=== PATIENT | female | born 1975 | race Caucasian/White ===

== ENCOUNTER 2016-06-24 11:56 | Emergency (ER) | payer OTHER ==
[2016-06-24 12:21] VITALS: BMI 29.8
[2016-06-24] MEDS ORDERED: SODIUM CHLORIDE 1,000 ML IV STA (12:58)
--- NOTE | 2016-06-24 12:58 | PDOC ---
History of Present Illness - General History Source: Patient Exam Limitations: No Limitations - History of Present Illness Initial Comments: 06/24/16 13:30 The patient is a 40 year old female with significant past medical history of hypertension, hyperlipidemia who presents to the emergency department with abdominal pain for 2 weeks. The patient states she has been having abdominal pain for the last 2 weeks so yesterday she saw her PMD and had blood tests done that showed a Hgb of 9. The patient describes her pain as constant in nature, localized to the suprapubic region and LLQ. The patient reports associated nausea and dizziness. She denies any LOC or headaches. The patient denies any vomiting or diarrhea. The patient denies any chest pain or SOB. She denies any fevers, chills, sick contacts or recent travels. The patient has been drinking fluids for the last few days and has been able to keep it down. <Mariah Henson - Last Filed: 06/24/16 13:29> <Jennifer Shepherd - Last Filed: 06/28/16 09:30> - General Chief Complaint: Pain, Acute Stated Complaint: DIZZINESS, NAUSEA, LOSS OF APPETITE Time Seen by Provider: 06/24/16 12:50 Past History <Mariah Henson - Last Filed: 06/24/16 13:29> - Past Medical History Asthma: Yes HTN: Yes (PRE-ECLAMPSIA) Kidney Stones: No (IGA-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) - Psycho/Social/Smoking Cessation Hx Anxiety: No Suicidal Ideation: No Smoking History: Never smoked Have you smoked in the past 12 months: No Hx Alcohol Use: No Substance Use Type: None <Jennifer Shepherd - Last Filed: 06/28/16 09:30> - Past Medical History Allergies/Adverse Reactions: Allergies Allergy/AdvReac Type Severity Reaction Status Date / Time Iodinated Contrast Media - Allergy Verified 06/24/16 15:41 Oral and Penicillins Allergy Verified 06/24/16 12:18 Home Medications: Ambulatory Orders Doxycycline Hyclate 100 mg PO BID #10 capsule 06/24/16 Losartan Potassium [Cozaar] 100 mg PO DAILY 06/24/16 Review of Systems - Review of Systems Able to Perform ROS?: Yes Comments:: 06/24/16 13:30 GENERAL/CONSTITUTIONAL: No fever or chills. No weakness. HEAD, EYES, EARS, NOSE AND THROAT: No change in vision. No ear pain or discharge. No sore throat. CARDIOVASCULAR: No chest pain or shortness of breath. RESPIRATORY: No cough, wheezing, or hemoptysis. GASTROINTESTINAL: +Nausea, +abdominal pain. No vomiting, diarrhea or constipation. GENITOURINARY: No dysuria, frequency, or change in urination. MUSCULOSKELETAL: No joint or muscle swelling or pain. No neck or back pain. SKIN: No rash NEUROLOGIC: No headache, vertigo, loss of consciousness, or change in strength/ sensation. ENDOCRINE: No increased thirst. No abnormal weight change. HEMATOLOGIC/LYMPHATIC: No anemia, easy bleeding, or history of blood clots. ALLERGIC/IMMUNOLOGIC: No hives or skin allergy. <Mariah Henson - Last Filed: 06/24/16 13:29> *Physical Exam - Vital Signs Last Vital Signs Temp Pulse Resp BP Pulse Ox 98.3 F 77 19 134/77 99 06/24/16 12:18 06/24/16 12:18 06/24/16 12:18 06/24/16 12:18 06/24/16 12:18 - Physical Exam Comments: 06/24/16 13:30 GENERAL: Awake, alert, and fully oriented, in no acute distress HEAD: No signs of trauma EYES: PERRLA, EOMI, sclera anicteric, conjunctiva clear ENT: Auricles normal inspection, hearing grossly normal, nares patent, oropharynx clear without exudates. Moist mucosa NECK: Normal ROM, supple, no lymphadenopathy, JVD, or masses LUNGS: Breath sounds equal, clear to auscultation bilaterally. No wheezes, and no crackles HEART: Regular rate and rhythm, normal S1 and S2, no murmurs, rubs or gallops ABDOMEN: +LLQ tenderness, no guarding, no rebound. Soft, normoactive bowel sounds. No masses EXTREMITIES: Normal range of motion, no edema. No clubbing or cyanosis. No cords, erythema, or tenderness NEUROLOGICAL: Cranial nerves II through XII grossly intact. Normal speech, normal gait SKIN: Warm, Dry, normal turgor, no rashes or lesions noted. <Mariah Henson - Last Filed: 06/24/16 13:29> - Vital Signs Last Vital Signs Temp Pulse Resp BP Pulse Ox 98.3 F 77 19 134/77 99 06/24/16 12:18 06/24/16 12:18 06/24/16 12:18 06/24/16 12:18 06/24/16 12:18 <Jennifer Shepherd - Last Filed: 06/28/16 09:30> ED Treatment Course - LABORATORY CBC & Chemistry Diagram: 06/24/16 12:58 06/24/16 12:58 - ADDITIONAL ORDERS Additional order review: 06/24/16 12:58 RBC 4.26 MCV 77.6 L MCHC 32.5 RDW 15.9 H D MPV 9.7 Neutrophils % 62.4 Lymphocytes % 22.3 Monocytes % 11.2 H Eosinophils % 3.5 Basophils % 0.6 <Mariah Hneson - Last Filed: 06/24/16 13:29> - LABORATORY CBC & Chemistry Diagram: 06/24/16 12:58 06/24/16 12:58 <Jennifer Shepherd - Last Filed: 06/28/16 09:30> Medical Decision Making - Medical Decision Making CT reviewed- no signs of acute process. Stable for DC home. <Jennifer Shepherd - Last Filed: 06/28/16 09:30> *DC/Admit/Observation/Transfer - Attestations Scribe Attestion: 06/24/16 13:31 Documentation prepared by Mariah Henson, acting as medical service representative for Jennifer Shepherd MD. <Mariah Henson - Last Filed: 06/24/16 13:29> - Discharge Dispostion Admit: No <Jennifer Shepherd - Last Filed: 06/28/16 09:30> Diagnosis at time of Disposition: Abdominal pain Qualifiers: Abdominal location: left lower quadrant Qualified Code(s): R10.32 - Left lower quadrant pain - Discharge Dispostion Disposition: HOME Condition at time of disposition: Stable - Referrals Referrals: Patric Kasper MD [Primary Care Provider] - - Patient Instructions Printed Discharge Instructions: DI for Abdominal Pain-Adult
[2016-06-24 13:22] LABS: BASOPHIL 0.6 % (0-2.0); EOSINOPHIL 3.5 % (0-4.5); MCH 25.2 pg (25.7-33.7); MCHC 32.5 g/dl (32.0-36.0); MEAN CELL VOLUME 77.6 fl (80-96); MEAN PLT VOLUME 9.7 fl (7.5-11.1); NEUTROPHILS 62.4 % (42.8-82.8); PLATELET COUNT 272 K/MM3 (134-434); RDW 15.9 % (11.6-15.6); WHITE BLOOD COUNT 8.2 K/mm3 (4.0-10.0)
[2016-06-24 13:39] LABS: ANION GAP 9 (8-16); CALCIUM 9.7 mg/dL (8.5-10.1); CO2 24 mmol/L (21-32); GLUCOSE,RANDOM 88 mg/dL (74-106); SGPT/ALT 21 U/L (12-78)
[2016-06-24 13:42] LABS: ALK PHOS 59 U/L (45-117); BILIRUBIN,TOTAL 0.3 mg/dL (0.2-1.0); SGOT/AST 22 U/L (15-37); TOT PROT 6.9 g/dl (6.4-8.2)
[2016-06-24 13:50] LABS: URINE APPEARANCE CLEAR; URINE BILIRUBIN NEGATIVE (NEGATIVE); URINE COLOR STRAW; URINE GLUCOSE (UA) NEGATIVE (NEGATIVE); URINE KETONE NEGATIVE (NEGATIVE); URINE LEUK ESTERASE NEGATIVE (NEGATIVE); URINE NITRITE NEGATIVE (NEGATIVE); URINE UROBILINOGEN NEGATIVE E.U./dl (0.2-1.0)
[2016-06-24 13:52] LABS: URINE BLOOD 1+ (NEGATIVE); URINE PROTEIN 2+ (NEGATIVE)
[2016-06-24 13:58] LABS: URINE BACTERIA RARE /hpf (NONE SEEN); URINE RBC 2 /hpf (0-3); URINE WBC <1 /hpf (3-5)
[2016-06-24 17:29] VITALS: BP 123/72; PULSE 75; TEMP 98.2
== END 2016-06-24 17:10 | disposition home or self-care (01) ==
LOC: JER 11:56
PROC: 3E0337Z Introduction of Electrolytic and Water Balance Substance into Peripheral Vein, Percutaneous Approach (ICD-10-PCS; principal; 2016-06-24)
DX: R10.32 Left lower quadrant pain (principal); J45.909 Unspecified asthma, uncomplicated
CPT/HCPCS: 36415; 74176-TC; 80053; 81003; 81015; 83690; 84703; 85025; 96360; 99283-25

== ENCOUNTER 2016-06-24 19:11 | Emergency (ER) | payer OTHER ==
[2016-06-24 19:18] VITALS: BP 144/72; PULSE 94; TEMP 97.7; BMI 29.8
--- NOTE | 2016-06-24 22:01 | PDOC ---
History of Present Illness - General Chief Complaint: Bite Stated Complaint: DOG BITE Time Seen by Provider: 06/24/16 21:54 History Source: Patient Exam Limitations: No Limitations - History of Present Illness Timing/Duration: reports: just prior to arrival Location: reports: hands (left dorsal) Respiratory Risk Factors: reports: other (dog bite) Past History - Travel Traveled outside of the country in the last 30 days: Yes Close contact w/someone who was outside of country & ill: No - Past Medical History Allergies/Adverse Reactions: Allergies Allergy/AdvReac Type Severity Reaction Status Date / Time Iodinated Contrast Media - Allergy Verified 06/24/16 19:18 Oral and Penicillins Allergy Verified 06/24/16 19:18 Home Medications: Ambulatory Orders Doxycycline Hyclate 100 mg PO BID #10 capsule 06/24/16 Losartan Potassium [Cozaar] 100 mg PO DAILY 06/24/16 Asthma: Yes HTN: Yes (PRE-ECLAMPSIA) Kidney Stones: No (IGA-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) - Immunization History Immunization Up to Date: No - Psycho/Social/Smoking Cessation Hx Anxiety: No Suicidal Ideation: No Smoking History: Never smoked Have you smoked in the past 12 months: No Information on smoking cessation initiated: No Hx Alcohol Use: No Drug/Substance Use Hx: No Substance Use Type: None Review of Systems - Review of Systems Able to Perform ROS?: Yes Comments:: right hand pw lac to 3rd dorsal mc neg ext numbness/tingling sensation neg active bleed Is the patient limited Thai proficient: No *Physical Exam - Vital Signs Last Vital Signs Temp Pulse Resp BP Pulse Ox 97.7 F 94 H 20 144/72 99 06/24/16 19:16 06/24/16 19:16 06/24/16 19:16 06/24/16 19:16 06/24/16 19:16 - Physical Exam Comments: 06/24/16 22:09 06/24/16 22:08 right hand 1cm horizontal pw lac to mid 3th mc +swelling +pain on palp right fingers 2 point sensation intact Cap refill <2sec Progress Note - Progress Note Progress Note: 40-year-old female who is right hand dominant presents to the emergency department complaining of a puncture wound laceration to the dorsal aspect of her right hand. Patient states while HER-2 dogs from fighting, one of them bit her on her hand. Patient denies any extremity numbness or tingling sensation. Patient's dog's immunizations are up-to-date. Unknown last tetanus. Right hand 1cm pw lac to mid 3rd dorsal mc 1% lidocaine 2cc Copious NS irrigation telfa kerlex No sutures *DC/Admit/Observation/Transfer Diagnosis at time of Disposition: Dog bite of right hand Qualifiers: Encounter type: initial encounter Qualified Code(s): S61.451A - Open bite of right hand, initial encounter - Discharge Dispostion Disposition: HOME Condition at time of disposition: Good - Prescriptions Prescriptions: Doxycycline Hyclate 100 mg PO BID #10 capsule - Referrals Referrals: Darryl Kasper MD [Primary Care Provider] - - Patient Instructions Printed Discharge Instructions: DI for Animal Bites Additional Instructions: Elevate your right hand Wound check in 2 days by your physician Take your antibiotics/doxycycline as prescribed (you are allergic to penicillin You don't need the rabies vaccination because you're dog's shots are up-to-date. Return back to the emergency department for any signs of infection, red streaks , fever, numbness or tingling sensation.
[2016-06-24] MEDS ORDERED: DOXYCYCLINE HYCLATE 100 MG CAPSULE PO ONE (22:05)
[2016-06-24] MEDS ORDERED: TETANUS AND DIPHTHERIA TOXOID 0.5 ML DISP.SYRIN IM ONE (22:05)
[2016-06-24] MEDS ORDERED: DOXYCYCLINE HYCLATE 100 MG VIAL ONE (22:20)
== END 2016-06-24 22:54 | disposition home or self-care (01) ==
LOC: JERFT 19:11 → SUPCPDRO 19:11 → JERFT 22:54
PROC: 3E0234Z Introduction of Serum, Toxoid and Vaccine into Muscle, Percutaneous Approach (ICD-10-PCS; principal; 2016-06-24)
DX: S61.452A Open bite of left hand, initial encounter (principal); W54.0XXA Bitten by dog, initial encounter; Y93.K9 Activity, other involving animal care; Y92.038 Other place in apartment as the place of occurrence of the external cause
CPT/HCPCS: 73130-TC-LT; 90471; 90715; 99281-25

== ENCOUNTER 2016-06-26 10:12 | Emergency (ER) | payer OTHER ==
[2016-06-26 10:17] VITALS: BP 133/68; PULSE 74; TEMP 98.1; BMI 29.8
--- NOTE | 2016-06-26 11:13 | PDOC ---
Suture Removal/Wound Check HPI - History of Present Illness Chief Complaint: Revisit,Wound Recheck Stated Complaint: RETURN VISIT Time Seen by Provider: 06/26/16 10:49 History Source: Yes: Patient Exam Limitations: Yes: No Limitations Treated at: [facility] ED - Previous ED Treatment Type of procedure performed on last visit: Yes: Other Tetanus Immunization: Yes: Up to Date Past History - Travel Traveled outside of the country in the last 30 days: No Close contact w/someone who was outside of country & ill: No - Past Medical History Allergies/Adverse Reactions: Allergies Iodinated Contrast Media - Oral and Allergy (Verified 06/26/16 10:17) Penicillins Allergy (Verified 06/26/16 10:17) Home Medications: Ambulatory Orders Doxycycline Hyclate 100 mg PO BID #10 capsule 06/24/16 Losartan Potassium [Cozaar] 100 mg PO DAILY 06/24/16 General: Yes: no pertinent history - Immunization History Immunizations Up to Date: No Tetanus Status: More than 5 years - Social History Smoking Status: Never smoked Suture Removal/Wound Check PE - Physical Exam Laceration/Wound Check Symptoms: reports: Pain (tenderness and swelling to), Other Comment (swelling and brusing to hand) Current Severity Level: None Maximum Severity Level: None Location of Laceration/Wound: right: Hand (puncture wound without redness, exudate, or 2 erythema noted although hand is swollen but appears more ecchymotic. Is able to flex and extend at fingers but has reproduced tenderness against resistance to left fourth digit with flexion and extension. No evidence of tenosynovitis.) *Review of Systems - Review of Systems Able to Perform ROS?: Yes Constitutional: Yes: Symptoms Reported, See HPI, Malaise. No: Fever Integumentary: Yes: Symptoms Reported, See HPI, Bruising Neurological: Yes: Symptoms reported All Other Systems: Reviewed and Negative Medical Decision Making - Medical Decision Making 06/26/16 12:18 discussed need to continue wound management for this hand, encouraged to keep highly elevated some swelling and reapply antibiotic cream and dressings 2-3 times a day. Given signs and symptoms of worsening including worsening redness, swelling, tenderness or inability to flex fingers. Encouraged to follow-up with hand specialist and given Dr. Champagne's telephone number for wound check this week. *DC/Admit/Observation/Transfer Diagnosis at time of Disposition: Encounter for wound re-check Dog bite of right hand Qualifiers: Encounter type: subsequent encounter Qualified Code(s): S61.451D - Open bite of right hand, subsequent encounter - Discharge Dispostion Disposition: HOME Condition at time of disposition: Stable Admit: No - Referrals Referrals: Patric Kasper MD [Primary Care Provider] - Bridger Hannah MD [Staff Physician] - - Patient Instructions Additional Instructions: Rest hand, keep highly elevated, use sling as often as possible Soak hand 2-3 times a day and reapply antibiotic cream Continue Augmentin as directed until completed Return immediately to emergency department for worsened pain, redness to hand, swelling, and immobility to fingers May consider follow-up appointment with hand specialist/orthopedist next week - Post Discharge Activity Work/School Note: Back to Work
== END 2016-06-26 11:19 | disposition home or self-care (01) ==
LOC: JERFT 10:12
DX: S61.451D Open bite of right hand, subsequent encounter (principal); W54.0XXD Bitten by dog, subsequent encounter
CPT/HCPCS: 99281-25

== ENCOUNTER 2016-08-18 15:06 | Emergency (ER) | payer OTHER ==
[2016-08-18 15:15] VITALS: BP 148/88; PULSE 79; TEMP 98.1; BMI 31.1
[2016-08-18] MEDS ORDERED: KETOROLAC TROMETHAMINE 30 MG/1 ML VIAL ONE (15:50)
[2016-08-18] MEDS ORDERED: KETOROLAC TROMETHAMINE 30 MG/1 ML VIAL IM ONE (15:58)
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
== END 2016-08-18 16:25 | disposition home or self-care (01) ==
LOC: JERFT 15:06
PROC: 3E0233Z Introduction of Anti-inflammatory into Muscle, Percutaneous Approach (ICD-10-PCS; principal; 2016-08-18)
DX: M54.2 Cervicalgia (principal); V43.52XA Car driver injured in collision with other type car in traffic accident, initial encounter; Y93.89 Activity, other specified; Y92.410 Unspecified street and highway as the place of occurrence of the external cause; I10 Essential (primary) hypertension; J45.909 Unspecified asthma, uncomplicated
CPT/HCPCS: 99281-25

== ENCOUNTER 2017-02-24 12:44 | Emergency (ER) | payer OTHER ==
[2017-02-24 12:50] VITALS: BP 135/87; PULSE 72; TEMP 98.4; BMI 29.8
--- NOTE | 2017-02-24 12:56 | PDOC ---
History of Present Illness - General Chief Complaint: Nausea Stated Complaint: HEADACHES Time Seen by Provider: 02/24/17 12:56 History Source: Patient - History of Present Illness Initial Comments: 41 year old female with history of epilepsy (childhood, currently unmedicated), HTN, and HLD presenting with dysuria, nausea, malaise, cough, and congestion for the past week. SHe states that she has had the dysuria with darkened urine and general weakness with occasional nausea for a week and tried some over the counter urinary medicine that she does not recall the name of. Just one day prior to her presentation she had a cough, congestion, and some rhinorrhea. She has tried nyquil and dayquil with minimal relief. Denies vomiting, chest pain, product cough, fevers, palpitations or other symptoms. 02/24/17 13:35 Past History - Past Medical History Allergies/Adverse Reactions: Allergies Allergy/AdvReac Type Severity Reaction Status Date / Time Iodinated Contrast- Oral and Allergy Verified 02/24/17 12:47 IV Dye [Iodinated Contrast Media - Oral and] Penicillins Allergy Verified 02/24/17 12:47 Home Medications: Ambulatory Orders Losartan Potassium [Cozaar] 100 mg PO DAILY 06/24/16 Simvastatin 40 mg PO DAILY 02/24/17 Sulfamethoxazole/Trimethoprim [Bactrim Ds Tablet] 1 each PO BID #13 tablet 02/24 Anemia: Yes Asthma: Yes HTN: Yes (PRE-ECLAMPSIA) Hypercholesterolemia: Yes Kidney Stones: (IGA-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) - Surgical History Abdominal Surgery: Yes - Immunization History Immunization Up to Date: No - Suicide/Smoking/Psychosocial Hx Smoking History: Never smoked Have you smoked in the past 12 months: No Hx Alcohol Use: No Drug/Substance Use Hx: No Substance Use Type: None Review of Systems - Review of Systems Constitutional: Yes: Chills, Diaphoresis, Loss of Appetite. No: Fever HEENTM: No: Blurred Vision Respiratory: No: Cough, Shortness of Breath, SOB with Exertion, Wheezing, Productive cough Cardiac (ROS): No: Chest Pain ABD/GI: No: Constipated, Diarrhea, Nausea, Vomiting *Physical Exam - Vital Signs Last Vital Signs Temp Pulse Resp BP Pulse Ox 98.4 F 72 18 135/87 99 02/24/17 12:46 02/24/17 12:46 02/24/17 12:46 02/24/17 12:46 02/24/17 12:46 - Physical Exam General Appearance: Yes: Nourished, Appropriately Dressed. No: Apparent Distress HEENT: positive: EOMI, RODERICK. negative: Normal ENT Inspection (mucous in the nares) Neck: positive: Trachea midline, Normal Thyroid, Supple. negative: Tender, Rigid Respiratory/Chest: positive: Lungs Clear, Normal Breath Sounds. negative: Chest Tender, Respiratory Distress Cardiovascular: positive: Regular Rhythm, Regular Rate Gastrointestinal/Abdominal: positive: Normal Bowel Sounds, Flat, Soft. negative : Tender Musculoskeletal: positive: Normal Inspection. negative: CVA Tenderness Extremity: positive: Normal Capillary Refill Integumentary: positive: Normal Color, Dry, Warm Neurologic: positive: Fully Oriented, Alert, Normal Mood/Affect ED Treatment Course - LABORATORY CBC & Chemistry Diagram: 02/24/17 13:19 02/24/17 13:19 Medical Decision Making - Medical Decision Making 41 year old female with dysuria, nausea, fatigue, and recent upper respiratory symptoms. UA positive for nitrites. Patient feeling better after 1 L NS. Will give one dose of Bactrim DS. Will send home with 13 doses of Bactrim DS BID to complete one week of therapy. 02/24/17 15:14 *DC/Admit/Observation/Transfer Diagnosis at time of Disposition: UTI (urinary tract infection) - Discharge Dispostion Disposition: HOME Condition at time of disposition: Improved Admit: No - Prescriptions Prescriptions: Sulfamethoxazole/Trimethoprim [Bactrim Ds Tablet] 1 each PO BID #13 tablet - Referrals Referrals: Darryl Kasper MD [Primary Care Provider] - - Patient Instructions Printed Discharge Instructions: DI for Urinary Tract Infection (UTI)
[2017-02-24] MEDS ORDERED: SODIUM CHLORIDE 0.9% 1000 ML INFUS.BAG IV ONE (13:27)
--- NOTE | 2017-02-24 13:50 | PDOC ---
Attending Attestation - Resident Resident Name: Artemio Best - ED Attending Attestation I have performed the following: I have examined & evaluated the patient, The case was reviewed & discussed with the resident, I agree w/resident's findings & plan, Exceptions are as noted - Medical Decision Making 02/24/17 14:24 A portion of this note was written by my scribe, under my supervision. Vital Signs Temp Pulse Resp BP Pulse Ox 98.4 F 72 18 135/87 99 02/24/17 12:46 02/24/17 12:46 02/24/17 12:46 02/24/17 12:46 02/24/17 12:46 41-year-old female with history of hypertension, hyperlipidemia presents with 10 days of dysuria. She reports reported discomfort now resolved and has had body aches. Most recently since yesterday started developing nasal congestion. Patient has tried Monistat and Pyridium at home with minimal effect I agree with the resident plan to rule out urinary tract infection. Labs, urinalysis. <David Finley - Last Filed: 02/24/17 14:24> - HPI HPI: 02/24/17 14:27 Patient is a 41 year old female with a significant past medical history of HTN, High cholesterol, who presents to the ED with complaints of dysuria that began 10 days ago. Patient reports dysuria began suddenly 10 days while at home. She reports taking monistat and peridium for dysuria 10 days ago. Patient reports calling PCP for dysuria and was scheduled for appointment 6 days ago. Patient states PCP diagnosed anemia. She reports experiencing episodes of nausea and general weakness secondary to dysuria. Patient states she took dayquil for dysuria with minimal relief. She reports nausea and weakness returned jc and yesterday secondary to dysuria. Patient reports Hx of epilepsy as child but states she has not had episode since 1 years old. Denies Chest pain, SOB. Denies fever, chills. Denies hematuria, constipation, diarrhea. Denies any other symptoms. Allergies: penicillin, Iodinated contrast oral and IV dye. Surgical history: None Social history: No smoking. No alcohol. No illicit drugs. PMD: Dr. Kasper. - Physicial Exam PE: 02/24/17 14:27 GENERAL: Awake, alert, and fully oriented, in no acute distress HEAD: No signs of trauma EYES: PERRLA, EOMI, sclera anicteric, conjunctiva clear ENT: Auricles normal inspection, hearing grossly normal, nares patent, oropharynx clear without exudates. Moist mucosa NECK: Normal ROM, supple, no lymphadenopathy, JVD, or masses LUNGS: Breath sounds equal, clear to auscultation bilaterally. No wheezes, and no crackles HEART: Regular rate and rhythm, normal S1 and S2, no murmurs, rubs or gallops ABDOMEN: +Superpubic tenderness. Soft, nontender, normoactive bowel sounds. No guarding, no rebound. No masses EXTREMITIES: Normal range of motion, no edema. No clubbing or cyanosis. No cords, erythema, or tenderness NEUROLOGICAL: Cranial nerves II through XII grossly intact. Normal speech, normal gait SKIN: Warm, Dry, normal turgor, no rashes or lesions noted. - Medical Decision Making 02/24/17 14:27 Documentation prepared by Da Miner, acting as medical coding technician for David Finley MD. <Da Miner - Last Filed: 02/24/17 14:27>
[2017-02-24 13:56] LABS: BASOPHIL 0.9 % (0-2.0); EOSINOPHIL 4.7 % (0-4.5); MCH 29.1 pg (25.7-33.7); MCHC 33.7 g/dl (32.0-36.0); MEAN CELL VOLUME 86.1 fl (80-96); MEAN PLT VOLUME 10.4 fl (7.5-11.1); PLATELET COUNT 253 K/MM3 (134-434); RDW 13.4 % (11.6-15.6); WHITE BLOOD COUNT 10.1 K/mm3 (4.0-10.0)
[2017-02-24 14:19] LABS: ANION GAP 8 (8-16); BILIRUBIN,TOTAL 0.4 mg/dL (0.2-1.0); CO2 25 mmol/L (21-32); CREATININE 1.1 mg/dL (0.55-1.02); GLUCOSE,RANDOM 94 mg/dL (74-106); SGOT/AST 27 U/L (15-37); SGPT/ALT 23 U/L (12-78)
[2017-02-24 14:21] LABS: ALK PHOS 70 U/L (45-117); TOT PROT 7.1 g/dl (6.4-8.2)
[2017-02-24 14:33] LABS: URINE APPEARANCE CLEAR; URINE BILIRUBIN NEGATIVE (NEGATIVE); URINE BLOOD 2+ (NEGATIVE); URINE COLOR AMBER; URINE GLUCOSE (UA) NEGATIVE (NEGATIVE); URINE KETONE NEGATIVE (NEGATIVE); URINE NITRITE POSITIVE (NEGATIVE)
[2017-02-24 14:41] LABS: URINE PROTEIN 3+ (NEGATIVE)
[2017-02-24 14:44] LABS: URINE HYALINE CAST 1 /lpf; URINE MUCUS RARE; URINE RBC 18 /hpf (0-3); URINE WBC 1 /hpf (3-5)
[2017-02-24] MEDS ORDERED: SULFAMETHOXAZOLE/TRIMETHOPRIM 800MG/160MG D.S. TABLET PO ONE (15:11)
[2017-02-24] MEDS ORDERED: SULFAMETHOXAZOLE/TRIMETHOPRIM 800MG/160MG D.S. TABLET ONE (15:52)
[2017-02-24 16:40] LABS: URINE LEUK ESTERASE Negative (NEGATIVE)
== END 2017-02-24 16:15 | disposition home or self-care (01) ==
LOC: JER 12:44 → SUPCPDRO 12:44 → JER 16:15
PROC: 3E0337Z Introduction of Electrolytic and Water Balance Substance into Peripheral Vein, Percutaneous Approach (ICD-10-PCS; principal; 2017-02-24)
DX: N39.0 Urinary tract infection, site not specified (principal); G40.909 Epilepsy, unspecified, not intractable, without status epilepticus; I10 Essential (primary) hypertension; E78.5 Hyperlipidemia, unspecified; J45.909 Unspecified asthma, uncomplicated
CPT/HCPCS: 36415; 80053; 81003; 81015; 84703; 85025; 87086; 87804; 96360; 99283-25

== ENCOUNTER 2017-05-17 11:01 | Emergency (ER) | payer OTHER ==
--- NOTE | 2017-05-17 11:06 | PDOC ---
History of Present Illness - General Chief Complaint: Respiratory Stated Complaint: COLD SYMPTOMS ASTHMA Time Seen by Provider: 05/17/17 11:04 - History of Present Illness Initial Comments: 05/17/17 11:58 Chief complaint: Nonproductive cough History of present illness: Patient's child is ill with upper respiratory infection, patient developed nonproductive cough, especially at night, several days ago. Taking OTC medication without relief Review of systems: Denies chest pain, shortness of breath, abdominal pain, nausea, vomiting, diarrhea, fever or chills, earache or sore throat, urinary tract symptoms, vaginal bleeding or discharge. Remainder systems reviewed and found to be negative Past medical history: Mild hypertension controlled on losartan. Otherwise healthy. No cardiac disease, or lung disease, or diabetes Social/family history: Nonsmoker, no alcohol, no drugs, otherwise noncontributory Physical exam: Alert and oriented well-developed well-nourished no acute distress cheerful and cooperative Afebrile, vital signs normal including respiratory rate and O2 saturation HEENT clear Neck supple without bruit mass or nodes Chest with full breath sounds bilaterally, occasional end expiratory wheezes at both bases. No rales or rhonchi CV without murmur rub or gallop Abdomen benign Neurological intact Skin clear, no rash, adequate turgor and wet mucous membranes Impression: Probable mild viral bronchitis Plan: Symptomatic treatment and follow-up if symptoms worsen. Fully ambulatory and in no respiratory or other distress upon discharge to follow-up as recommended Past History - Past Medical History Allergies/Adverse Reactions: Allergies Allergy/AdvReac Type Severity Reaction Status Date / Time Iodinated Contrast- Oral and Allergy Verified 05/17/17 11:03 IV Dye [Iodinated Contrast Media - Oral and] Penicillins Allergy Verified 05/17/17 11:03 Home Medications: Ambulatory Orders Albuterol Sulfate Inhaler - [Ventolin HFA Inhaler -] 2 puff IH PRN 05/17/17 Cetirizine HCl 10 mg PO DAILY 05/17/17 Cholecalciferol (Vitamin D3) [Vitamin D3] 50,000 unit PO DAILY 05/17/17 Ferrous Sulfate [Iron] 325 mg PO DAILY 05/17/17 Guaifenesin AC [Robitussin-AC] 1 - 2 tsp PO Q4HWA PRN #120 ml MDD 8 05/17/17 Hydrocodone/Acetaminophen [Hydrocodone-Acetamin 5-325 mg] 1 tab PO QID 05/17/17 Ibuprofen 800 mg PO PRN 05/17/17 Losartan Potassium 100 mg PO DAILY 05/17/17 Pheniramine/P-Eph/Acetaminophn [Theraflu Flu & Sore Throat] 1 pack PO DAILY Sertraline HCl 50 mg PO DAILY 05/17/17 Simvastatin 40 mg PO HS 05/17/17 Anemia: Yes Asthma: Yes COPD: No HTN: Yes (PRE-ECLAMPSIA) Hypercholesterolemia: Yes Kidney Stones: (IGA-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) Seizures: Yes (CHILDHOOD EPILEPSY) - Surgical History Abdominal Surgery: Yes - Immunization History Immunization Up to Date: No - Suicide/Smoking/Psychosocial Hx Smoking History: Never smoked Have you smoked in the past 12 months: No Hx Alcohol Use: No Drug/Substance Use Hx: No Substance Use Type: None *DC/Admit/Observation/Transfer Diagnosis at time of Disposition: Viral bronchitis - Discharge Dispostion Disposition: HOME Condition at time of disposition: Stable Admit: No - Prescriptions Prescriptions: Guaifenesin AC [Robitussin-AC] 1 - 2 tsp PO Q4HWA PRN #120 ml MDD 8 PRN Reason: Cough, Congestion - Referrals - Patient Instructions Printed Discharge Instructions: DI for Acute Bronchitis Additional Instructions: Rest, fluids, Tylenol, Advil, or Motrin as needed. Prescription cough medication as directed Return to ER if there is fever or shortness of breath Otherwise follow-up with primary physician in 2-3 days. - Post Discharge Activity
[2017-05-17 11:10] VITALS: BP 132/61; PULSE 75; TEMP 98.5; BMI 31.1
== END 2017-05-17 11:25 | disposition home or self-care (01) ==
LOC: FER 11:01
DX: J20.8 Acute bronchitis due to other specified organisms (principal); J45.909 Unspecified asthma, uncomplicated; D64.9 Anemia, unspecified; E78.00 Pure hypercholesterolemia, unspecified
CPT/HCPCS: 99281-25

== ENCOUNTER 2017-06-16 10:22 | Emergency (ER) | payer OTHER ==
[2017-06-16 10:31] VITALS: BP 121/74; PULSE 62; TEMP 98.5; BMI 30.9
--- NOTE | 2017-06-16 14:25 | PDOC ---
History of Present Illness - General Chief Complaint: Pain Stated Complaint: RT SIDE PAIN Time Seen by Provider: 06/16/17 13:21 History Source: Patient - History of Present Illness Travel History: No Initial Comments: 06/16/17 14:17 41F with pmh of 4 abdominal surgeries for endometriosis and 1 presents with right lower flank pain and right upper buttock pain since Monday associated with urethral post-voidal pain radiating to her right flank. She states that since Monday she's had a swelling in her lower right quadrant and down her right leg to her knee, now resolved. No history of stones, no hysterectomy. States that shes been having a month-long bronchitis. Past History - Past Medical History Allergies/Adverse Reactions: Allergies Allergy/AdvReac Type Severity Reaction Status Date / Time Iodinated Contrast- Oral and Allergy Verified 06/16/17 10:27 IV Dye [Iodinated Contrast Media - Oral and] Penicillins Allergy Verified 06/16/17 10:27 Home Medications: Ambulatory Orders Albuterol Sulfate Inhaler - [Ventolin HFA Inhaler -] 2 puff IH PRN 05/17/17 Cetirizine HCl 10 mg PO DAILY 05/17/17 Cholecalciferol (Vitamin D3) [Vitamin D3] 50,000 unit PO DAILY 05/17/17 Ferrous Sulfate [Iron] 325 mg PO DAILY 05/17/17 Guaifenesin AC [Robitussin-AC] 1 - 2 tsp PO Q4HWA PRN #120 ml MDD 8 05/17/17 Hydrocodone/Acetaminophen [Hydrocodone-Acetamin 5-325 mg] 1 tab PO QID 05/17/17 Ibuprofen 800 mg PO PRN 05/17/17 Losartan Potassium 100 mg PO DAILY 05/17/17 Pheniramine/P-Eph/Acetaminophn [Theraflu Flu & Sore Throat] 1 pack PO DAILY Sertraline HCl 50 mg PO DAILY 05/17/17 Simvastatin 40 mg PO HS 05/17/17 Anemia: Yes Asthma: Yes COPD: No HTN: Yes (PRE-ECLAMPSIA) Hypercholesterolemia: Yes Kidney Stones: (IGA-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) Psychiatric Problems: Yes (DEPRESSION ANXIETY) Seizures: Yes (CHILDHOOD EPILEPSY) - Surgical History Abdominal Surgery: Yes (cyst removal) - Immunization History Immunization Up to Date: No - Suicide/Smoking/Psychosocial Hx Smoking History: Never smoked Have you smoked in the past 12 months: No Information on smoking cessation initiated: No Hx Alcohol Use: No Drug/Substance Use Hx: No Substance Use Type: None Review of Systems - Review of Systems Able to Perform ROS?: Yes Is the patient limited Niuean proficient: No Constitutional: No: Symptoms Reported HEENTM: No: Symptoms Reported Respiratory: Yes: Cough. No: Shortness of Breath Cardiac (ROS): No: Symptoms Reported ABD/GI: No: Constipated, Diarrhea, Difficulty Swallowing, Nausea, Vomiting, Abdominal cramping : Yes: See HPI, Dysuria All Other Systems: Reviewed and Negative *Physical Exam - Vital Signs Last Vital Signs Temp Pulse Resp BP Pulse Ox 98.5 F 62 20 121/74 100 06/16/17 10:28 06/16/17 10:28 06/16/17 10:28 06/16/17 10:28 06/16/17 10:28 - Physical Exam General Appearance: Yes: Nourished, Appropriately Dressed. No: Apparent Distress HEENT: positive: EOMI, RODERICK, Normal ENT Inspection Respiratory/Chest: negative: Chest Tender, Respiratory Distress Cardiovascular: positive: Regular Rhythm, Regular Rate, S1, S2 Gastrointestinal/Abdominal: positive: Normal Bowel Sounds, Tender (right lower flank), Flat, Soft, Tenderness Musculoskeletal: positive: CVA Tenderness (R) Extremity: positive: Normal Capillary Refill. negative: Pedal Edema, Swelling Integumentary: positive: Normal Color, Dry, Warm. negative: Pale, Cold, Clammy Neurologic: positive: Fully Oriented, Alert, Normal Mood/Affect, Normal Response ED Treatment Course - LABORATORY CBC & Chemistry Diagram: 06/16/17 14:30 06/16/17 14:30 - RADIOLOGY Radiology Studies Ordered: Category Date Time Status SPIRAL- RENAL-STONE CT [CT] Stat CT Scan 06/16/17 13:45 Ordered Medical Decision Making - Medical Decision Making 06/16/17 14:39 41F with painful urination and right flank pain. Nephrolithiasis vs adhesions Spiral CT abdomen pending basic labs 06/16/17 16:27 CT positive for uterine leiyoma. Will d/c with obgyn dispo *DC/Admit/Observation/Transfer Diagnosis at time of Disposition: Leiomyoma - Discharge Dispostion Disposition: HOME Admit: No - Referrals Referrals: Sterling Armando MD [Primary Care Provider] - - Patient Instructions Printed Discharge Instructions: DI for Uterine Fibroids Additional Instructions: Follow up with your OBGYN within the next 3-4 days. Come back to the ED for any new, worsening or concerning symptom. - Post Discharge Activity
[2017-06-16 14:34] LABS: URINE APPEARANCE CLEAR; URINE BILIRUBIN NEGATIVE (NEGATIVE); URINE BLOOD 1+ (NEGATIVE); URINE COLOR LTYELLOW; URINE GLUCOSE (UA) NEGATIVE (NEGATIVE); URINE KETONE NEGATIVE (NEGATIVE); URINE LEUK ESTERASE NEGATIVE (NEGATIVE); URINE NITRITE NEGATIVE (NEGATIVE); URINE UROBILINOGEN NEGATIVE mg/dL (0.2-1.0)
[2017-06-16] MEDS ORDERED: SODIUM CHLORIDE 1,000 ML IV STA (14:40)
[2017-06-16 14:41] LABS: BASO % 0.6 % (0-2.0); EOS % 5.5 % (0-4.5); HEMATOCRIT 40.6 % (32.4-45.2); HEMOGLOBIN 13.3 GM/dL (10.7-15.3); MCH 28.9 pg (25.7-33.7); MCHC 32.8 g/dl (32.0-36.0); MEAN CELL VOLUME 88.4 fl (80-96); MEAN PLT VOLUME 10.2 fl (7.5-11.1); MONO % 7.2 % (3.8-10.2); NEUT % 67.7 % (42.8-82.8); PLATELET COUNT 242 K/MM3 (134-434); RBC 4.59 M/mm3 (3.60-5.2); WHITE BLOOD COUNT 9.7 K/mm3 (4.0-10.0)
[2017-06-16 14:48] LABS: URINE PROTEIN 3+ (NEGATIVE)
[2017-06-16 15:06] LABS: ALBUMIN 2.5 g/dl (3.4-5.0); ANION GAP 9 (8-16); BLOOD UREA NITROGEN 21 mg/dL (7-18); CALCIUM 8.6 mg/dL (8.5-10.1); CHLORIDE 108 mmol/L (98-107); CO2 24 mmol/L (21-32); GLUCOSE,RANDOM 104 mg/dL (74-106); POTASSIUM 4.1 mmol/L (3.5-5.1); SODIUM 141 mmol/L (136-145)
[2017-06-16 15:09] LABS: ALK PHOS 61 U/L (45-117); BILIRUBIN,TOTAL 0.4 mg/dL (0.2-1.0); SGOT/AST 17 U/L (15-37); SGPT/ALT 19 U/L (12-78); TOT PROT 6.1 g/dl (6.4-8.2)
[2017-06-16] MEDS ORDERED: KETOROLAC TROMETHAMINE 15 MG/ML VIAL IVPUSH ONE (15:24)
[2017-06-16 15:28] LABS: EPI CELLS RARE /HPF (FEW); URINE HYALINE CAST 6 /lpf; URINE MUCUS RARE
[2017-06-16] MEDS ORDERED: KETOROLAC TROMETHAMINE 15 MG/ML VIAL ONE (16:46)
[2017-06-16] MEDS ORDERED: KETOROLAC TROMETHAMINE 15 MG/ML VIAL IM ONE (16:55)
--- NOTE | 2017-06-16 17:23 | PDOC ---
Attending Attestation - Resident Resident Name: Merrill Cunha - ED Attending Attestation I have performed the following: I have examined & evaluated the patient, The case was reviewed & discussed with the resident, I agree w/resident's findings & plan, Exceptions are as noted - HPI HPI: 06/16/17 17:19 "Patient is a 41 year old female with a significant past medical history of HTN , endometriosis , hyperlipidemia, asthma, emotional seizures, Buergers disease, and preeclampsia who presents to the ED with complaints of Abdominal pain and right flank pain that began yesterday afternoon. Patient reports experiencing right flank pain suddenly while at home. The pain radiates to her R groin. She also states that she felt some swelling in her R thigh yesterday that has since subsided. Patient reports going to see PCP for her R sided pain and was referred to the ED for further evaluation. Denies chest pain, Sob. Denies nausea, vomiting. Denies fevers, chills. Denies change in appetite, constipation, diarrhea. Denies any other symptoms. Allergies: Penicillin Social history: No smoking. No lcool. No illicit drugs. Surgical history:. Ovarian cyst removal (5x). PMD: Dr. Armando " - Physicial Exam PE: 06/16/17 17:21 "GENERAL: Awake, alert, and fully oriented, in no acute distress HEAD: No signs of trauma EYES: PERRLA, EOMI, sclera anicteric, conjunctiva clear ENT: Auricles normal inspection, hearing grossly normal, nares patent, oropharynx clear without exudates. Moist mucosa NECK: Nontender, no stepoffs, Normal ROM, supple, no lymphadenopathy, JVD, or masses LUNGS: Breath sounds equal, clear to auscultation bilaterally. No wheezes, and no crackles HEART: Regular rate and rhythm, normal S1 and S2, no murmurs, rubs or gallops ABDOMEN: Soft, nontender, normoactive bowel sounds. No guarding, no rebound. No masses : No adnexal tenderness or masses, no CMT EXTREMITIES: Normal range of motion, no edema. No clubbing or cyanosis. No cords, erythema, or tenderness NEUROLOGICAL: Cranial nerves II through XII intact. 5/5 strength and sensation in all extremities, Normal speech, normal gait SKIN: Warm, Dry, normal turgor, no rashes or lesions noted. - Medical Decision Making 06/16/17 17:22 41 F with R flank pain radiating to R groin as well as RLE swelling that has subsided. Pt with benign abdominal exam in ER. No CVAT. No fevers. Possible nephrolithiasis. Appy unlikely as pt with no abdominal tenderness. Ovarian pathology unlikely as pt with no adnexal masses or tenderness. - Labs, UA, UPT - CT non-con to r/o stone 06/16/17 17:24 CT with no findings other than leiomyomatous uterus. Pt reassessed - has complete resolution of pain s/p toradol. Repeat abdominal exam continues to be benign. Pt well appearing, with no complaints at this time. Vitals normal. Clinically stable for DC. I discussed the physical exam findings, ancillary test results and final diagnoses with the patient. I answered all of the patient's questions. The patient was satisfied with the care received and felt comfortable with the discharge plan and treatment plan. The patient agrees to follow up with the primary care physician within 24-72 hours.
== END 2017-06-16 16:58 | disposition home or self-care (01) ==
LOC: JER 10:22
PROC: 3E0233Z Introduction of Anti-inflammatory into Muscle, Percutaneous Approach (ICD-10-PCS; principal; 2017-06-16)
DX: D21.9 Benign neoplasm of connective and other soft tissue, unspecified (principal)
CPT/HCPCS: 36415; 74176; 80053; 81003; 81015; 84703; 85025; 93971-TC; 96372; 99283-25

== ENCOUNTER 2018-03-02 09:53 | Emergency (ER) | payer OTHER ==
--- NOTE | 2018-03-02 10:03 | PDOC ---
History of Present Illness - General History Source: Patient Exam Limitations: No Limitations - History of Present Illness Initial Comments: 03/02/18 11:48 The patient is a 42-year-old female with past medical history significant for Buerger's disease, HTN, endometriosis, HLD, asthma, anemia, anxiety and depression presents to the emergency department with abdominal pain. The patient presents with pain to the L. middle quadrant and the umbilicus region since 3:00 am last night. The patient reports pain is intermittent, with the severity of 10/10, describes the quality as stabbing, thats aggravated with standing. The patient reports a similar pain about 1 night prior following intercourse that was resolved when she woke up in the morning. The patient states shes been having chest pain and shortness of breath thats worsened when she is sitting down, which she attributes to an anxiety flare up. The patient reports an additional concern of chronic dizziness, nausea and a headache, states its secondary to lack of sleep due to taking care of a family member for the last 1 months. The patient indicates she is currently being worked up for hematuria and IGA protein in the kidney, states she had a biopsy done last week of her R. kidney, with unremarkable results. Denies fever, chills , nausea, vomiting, diarrhea, constipation, dysuria, frequency or urgency to urinate, chest pain or shortness of breath. Allergies: Iodinated Contrast, Penicillins, pine trees. Social history: No past or present use of tobacco, alcohol or recreational drug use. Surgical history: 3x abdominal surgery for endometriosis, , 6x ovarian cyst removed. PCP: Sterling Lerma MD <Amy Hawley - Last Filed: 03/02/18 11:47> <Bernadette Akhtar - Last Filed: 03/02/18 13:55> - General Chief Complaint: Pain, Acute Stated Complaint: ABD PAIN Time Seen by Provider: 03/02/18 10:03 Past History <Amy Hawley - Last Filed: 03/02/18 11:47> - Past Medical History Anemia: Yes Asthma: Yes COPD: No HTN: Yes (PRE-ECLAMPSIA) Hypercholesterolemia: Yes Kidney Stones: (IGA-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) Psychiatric Problems: Yes (DEPRESSION ANXIETY) Seizures: Yes (CHILDHOOD EPILEPSY) - Surgical History Abdominal Surgery: Yes (cyst removal) - Immunization History Immunization Up to Date: No - Suicide/Smoking/Psychosocial Hx Smoking History: Never smoked Have you smoked in the past 12 months: No Hx Alcohol Use: No Drug/Substance Use Hx: No Substance Use Type: None <Bernadette Akhtar - Last Filed: 03/02/18 13:55> - Past Medical History Allergies/Adverse Reactions: Allergies Allergy/AdvReac Type Severity Reaction Status Date / Time Iodinated Contrast- Oral and Allergy Verified 03/02/18 09:57 IV Dye [Iodinated Contrast Media - Oral and] Penicillins Allergy Verified 03/02/18 09:57 pine tree Allergy Uncoded 03/02/18 09:57 Home Medications: Ambulatory Orders Albuterol Sulfate Inhaler - [Ventolin HFA Inhaler -] 2 puff IH PRN 05/17/17 Cholecalciferol (Vitamin D3) [Vitamin D3] 50,000 unit PO DAILY 05/17/17 Ferrous Sulfate [Iron] 325 mg PO DAILY 05/17/17 RX: Ibuprofen 800 mg PO PRN 05/17/17 RX: Losartan Potassium 100 mg PO DAILY 05/17/17 RX: Sertraline HCl 50 mg PO DAILY 05/17/17 Review of Systems - Review of Systems Able to Perform ROS?: Yes Comments:: 03/02/18 11:48 GENERAL/CONSTITUTIONAL: No fever or chills. No weakness. HEAD, EYES, EARS, NOSE AND THROAT: No change in vision. No ear pain or discharge. No sore throat. CARDIOVASCULAR: No chest pain or shortness of breath. RESPIRATORY: No cough, wheezing, or hemoptysis. GASTROINTESTINAL: (+) abdominal pain to the L. middle quadrant and umbilicus region, stabbing in quality. No nausea, vomiting, diarrhea or constipation. GENITOURINARY: No dysuria, frequency, or change in urination. MUSCULOSKELETAL: No joint or muscle swelling or pain. No neck or back pain. SKIN: No rash NEUROLOGIC: No headache, vertigo, loss of consciousness, or change in strength/ sensation. ENDOCRINE: No increased thirst. No abnormal weight change. HEMATOLOGIC/LYMPHATIC: No anemia, easy bleeding, or history of blood clots. ALLERGIC/IMMUNOLOGIC: No hives or skin allergy. <Amy Hawley - Last Filed: 03/02/18 11:47> *Physical Exam - Vital Signs Last Vital Signs Temp Pulse Resp BP Pulse Ox 99.4 F 65 16 118/73 99 03/02/18 09:59 03/02/18 09:59 03/02/18 09:59 03/02/18 09:59 03/02/18 10:52 - Physical Exam Comments: 03/02/18 11:48 GENERAL: Awake, alert, and fully oriented, in no acute distress NECK: Normal ROM, supple, no lymphadenopathy, JVD, or masses LUNGS: Breath sounds equal, clear to auscultation bilaterally. No wheezes, and no crackles HEART: Regular rate and rhythm, normal S1 and S2, no murmurs, rubs or gallops ABDOMEN: Soft, nontender, nondistended, no CVA tenderness. No guarding, no rebound. No masses EXTREMITIES: Normal range of motion, no edema. No clubbing or cyanosis. No cords, erythema, or tenderness NEUROLOGICAL: Normal mood and affect, Cranial nerves II through XII grossly intact. Normal speech. SKIN: Warm, Dry, normal turgor, no rashes or lesions noted. <Amy Hawley - Last Filed: 03/02/18 11:47> - Vital Signs Last Vital Signs Temp Pulse Resp BP Pulse Ox 99.4 F 65 16 118/73 99 03/02/18 09:59 03/02/18 09:59 03/02/18 09:59 03/02/18 09:59 03/02/18 09:59 <Bernadette Akhtar - Last Filed: 03/02/18 13:55> ED Treatment Course - LABORATORY CBC & Chemistry Diagram: 03/02/18 11:24 03/02/18 11:24 - ADDITIONAL ORDERS Additional order review: Laboratory Results 03/02/18 11:15 Urine HCG, Qual Negative 03/02/18 11:24 RBC 4.32 MCV 84.1 MCHC 32.4 RDW 14.9 MPV 10.0 Neutrophils % 61.6 Lymphocytes % 24.1 Monocytes % 9.4 Eosinophils % 4.3 Basophils % 0.6 - Medications Given in the ED: ED Medications Discontinued Medications Generic Name Dose Route Start Last Admin Trade Name Freq PRN Reason Stop Dose Admin Ketorolac Tromethamine 30 mg 03/02/18 11:16 03/02/18 11:36 Toradol Injection - IVPUSH 03/02/18 11:17 Not Given ONCE ONE <Amy Hawley - Last Filed: 03/02/18 11:47> - LABORATORY CBC & Chemistry Diagram: 03/02/18 11:24 03/02/18 11:24 <Bernadette Akhtar - Last Filed: 03/02/18 13:55> Medical Decision Making - Medical Decision Making 03/02/18 11:18 Pt presents to the ED complaining of periumbilical abdominal pain that started acutely at 3 am. Denies fever, nausea or vomiting or change in bowel movements. Differential includes pancreatits, biliary disease, less likely endometriosis, diverticulitis, UTI, ectopic . Will check labs and non contrast CT, reassess. 03/02/18 13:53 CT negative except for ovarian cyst. PAteint feels improved and wants to go home. Will discharge home with instructions to return immediately for worsening pain and to follow up with her ASSISTANT PROFESSOR OF HISTORY. <Bernadette Akhtar - Last Filed: 03/02/18 13:55> *DC/Admit/Observation/Transfer - Attestations Scribe Attestion: 03/02/18 11:48 Documentation prepared by Amy Hawley, acting as medical equipment sales for Bernadette Akhtar MD. <Amy Hawley - Last Filed: 03/02/18 11:47> - Discharge Dispostion Decision to Admit order: No <Bernadette Akhtar - Last Filed: 03/02/18 13:55> Diagnosis at time of Disposition: Abdominal pain Qualifiers: Abdominal location: periumbilical Qualified Code(s): R10.33 - Periumbilical pain - Discharge Dispostion Disposition: HOME Condition at time of disposition: Good - Referrals Referrals: Sterling Armando MD [Primary Care Provider] - - Patient Instructions Printed Discharge Instructions: DI for Abdominal Pain-Adult Additional Instructions: return to the ED for severe pain, pain with fever, severe nausea and vomiting, bloody vomit or stool, other new or worsening symptoms. You should call your ASSISTANT PROFESSOR OF HISTORY on Monday to make an appointment for this week. - Post Discharge Activity
[2018-03-02 10:13] VITALS: BMI 28.5
[2018-03-02] MEDS ORDERED: KETOROLAC TROMETHAMINE 30 MG/1 ML VIAL IVPUSH ONE (11:16)
[2018-03-02] MEDS ORDERED: KETOROLAC TROMETHAMINE 30 MG/1 ML VIAL ONE (11:32)
[2018-03-02 11:34] LABS: BASO % 0.6 % (0-2.0); EOS % 4.3 % (0-4.5); HEMATOCRIT 36.3 % (32.4-45.2); HEMOGLOBIN 11.8 GM/dL (10.7-15.3); LYMPH % 24.1 % (8-40); MCH 27.2 pg (25.7-33.7); MCHC 32.4 g/dl (32.0-36.0); MEAN CELL VOLUME 84.1 fl (80-96); MONO % 9.4 % (3.8-10.2); NEUT % 61.6 % (42.8-82.8); PLATELET COUNT 233 K/MM3 (134-434); RBC 4.32 M/mm3 (3.60-5.2); RDW 14.9 % (11.6-15.6); WHITE BLOOD COUNT 5.3 K/mm3 (4.0-10.0)
[2018-03-02 11:37] LABS: URINE APPEARANCE CLEAR; URINE BILIRUBIN NEGATIVE (<2.0 mg/dL); URINE COLOR STRAW; URINE GLUCOSE (UA) NEGATIVE (NEGATIVE); URINE KETONE NEGATIVE (NEGATIVE); URINE LEUK ESTERASE NEGATIVE (NEGATIVE); URINE NITRITE NEGATIVE (NEGATIVE); URINE PROTEIN 2+ (NEGATIVE); URINE UROBILINOGEN NEGATIVE mg/dL (0.2-1.0)
[2018-03-02 11:38] LABS: HCG,QUALITATIVE URINE Negative
[2018-03-02 11:46] LABS: INR 1.04 (0.83-1.09); PROTHROMBIN TIME (PATIENT) 12.3 SEC (9.7-13.0)
[2018-03-02 11:49] LABS: ACTIVATED PTT 33.3 SECONDS (25.2-36.5)
[2018-03-02 11:52] LABS: EPI CELLS RARE /HPF (FEW); URINE BACTERIA RARE /hpf (NONE SEEN)
[2018-03-02 11:55] LABS: ALBUMIN 2.7 g/dl (3.4-5.0); ALK PHOS 64 U/L (45-117); ANION GAP 5 MMOL/L (8-16); BILIRUBIN,TOTAL 0.2 mg/dL (0.2-1); BLOOD UREA NITROGEN 21 mg/dL (7-18); CALCIUM 9.2 mg/dL (8.5-10.1); CHLORIDE 109 mmol/L (98-107); CO2 27 mmol/L (21-32); CREATININE 1.1 mg/dL (0.55-1.3); GLUCOSE,RANDOM 86 mg/dL (74-106); LIPASE 166 U/L (73-393); POTASSIUM 4.4 mmol/L (3.5-5.1); SGOT/AST 23 U/L (15-37); SGPT/ALT 23 U/L (13-61); SODIUM 141 mmol/L (136-145); TOT PROT 6.6 g/dl (6.4-8.2)
[2018-03-02 14:21] VITALS: BP 124/78; PULSE 78; TEMP 99.2
== END 2018-03-02 14:21 | disposition home or self-care (01) ==
LOC: JER 09:53
DX: R10.33 Periumbilical pain (principal); I10 Essential (primary) hypertension; E78.00 Pure hypercholesterolemia, unspecified; F41.8 Other specified anxiety disorders; J45.909 Unspecified asthma, uncomplicated; D64.9 Anemia, unspecified; Z91.041 Radiographic dye allergy status; Z88.0 Allergy status to penicillin
CPT/HCPCS: 36415; 74176-TC; 80053; 81003; 81015; 83690; 84703; 85025; 85610; 85730; 99282-25

== ENCOUNTER 2018-09-14 11:06 | Emergency (ER) | payer OTHER ==
[2018-09-14 11:14] VITALS: BP 130/78; PULSE 72; TEMP 98.5; BMI 27.3
--- NOTE | 2018-09-14 12:03 | PDOC ---
History of Present Illness - General Chief Complaint: Headache Stated Complaint: HEADACHE/ PAU EAR PAIN Time Seen by Provider: 09/14/18 12:01 - History of Present Illness Initial Comments: 09/14/18 13:25 The patient is a 42 year old female with a history of Anemia, HTN, HLD who presents for evaluation of headache and ear pain. The patient reports a 4 day history of pressure like headache with associated phonophobia and right ear pain. She states that she initially had dizziness and nausea as well and presented to [facility] where she was treated with improvement in her dizziness and nausea. She notes that since then she has continued to experience headache which improves with ibuprofen, however have continued to return prompting her presentation to the ED for further evaluation. She otherwise denies fevers, chills, SOB, chest pain, nausea, vomiting, abdominal pain, numbness, tingling, weakness, or changes with urination or bowel movements. Past History - Past Medical History Allergies/Adverse Reactions: Allergies Allergy/AdvReac Type Severity Reaction Status Date / Time Iodinated Contrast- Oral and Allergy Verified 09/14/18 11:12 IV Dye [Iodinated Contrast Media - Oral and] Penicillins Allergy Verified 09/14/18 11:12 pine tree Allergy Uncoded 09/14/18 11:12 Home Medications: Ambulatory Orders Atenolol/Chlorthalidone [Tenoretic 100/25 Tablet] 1 each PO DAILY 02/18/14 Albuterol Sulfate Inhaler - [Ventolin HFA Inhaler -] 2 puff IH PRN 05/17/17 Cholecalciferol (Vitamin D3) [Vitamin D3] 50,000 unit PO DAILY 05/17/17 Ferrous Sulfate [Iron] 325 mg PO DAILY 05/17/17 Ibuprofen 800 mg PO PRN 05/17/17 Losartan Potassium 100 mg PO DAILY 05/17/17 Sertraline HCl 50 mg PO DAILY 05/17/17 Anemia: Yes Asthma: Yes COPD: No HTN: Yes (PRE-ECLAMPSIA) Hypercholesterolemia: Yes Kidney Stones: (IGA-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 No Rhinorrhea, nasal congestion, visual changes Cardiovascular: No chest pain, syncope, palpitations, lightheadedness Respiratory: No Cough, SOB, Hemoptysis, Gastrointestinal: No Abdominal pain, Nausea, Vomiting, Constipation, Diarrhea, Melena Genitourinary: No Dysuria, Frequency, Urgency, Hesitancy, Hematuria, Flank pain Musculoskeletal: No Myalgia, arthralgia Skin: No rashes, itching, bruising, pallor Neurologic: Headache. No Dizziness, Numbness, Weakness, or Tingling Psychiatric: No Hallucinations. No SI or HI *Physical Exam - Vital Signs Last Vital Signs Temp Pulse Resp BP Pulse Ox 98.5 F 72 18 130/78 98 09/14/18 11:13 09/14/18 11:13 09/14/18 11:13 09/14/18 11:13 09/14/18 11:13 - Physical Exam Comments: 09/14/18 13:30 General Appearance: Nourished. No Apparent Distress HEENT: EOMI, RODERICK.Normal TMs bilaterally. No Nystagmus. No Pharyngeal Erythema , Tonsillar Exudate, Tonsillar Erythema Neck: No Cervical Lymphadenopathy Respiratory/Chest: Lungs Clear, Normal Breath Sounds. No Crackles, Rales, Rhonchi, Wheezing Cardiovascular: Regular Rhythm, Regular Rate. No Murmur, Gallops, Rubs Gastrointestinal/Abdominal: Normal Bowel Sounds, Soft. 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 ED Treatment Course - LABORATORY CBC & Chemistry Diagram: 09/14/18 13:35 09/14/18 13:35 Medical Decision Making - Medical Decision Making 09/14/18 13:31 The patient is a 42 year old female with a history of Anemia, HTN, HLD who presents for evaluation of headache and ear pain. Given the patient's history and physical exam, we will obtain a cbc, cmp, serum preg to evaluate further. We will treat with iv fluids and tylenol and continue to monitor and reassess while here in the ED. The patient has no focal neurological deficits and appears clinically well on exam. 09/14/18 15:01 CBC, cmp are unremarkable. The patient was reassessed and reports improvement in their symptoms. We are comfortable discharging the patient home in stable condition. Patient and family made aware of impression and plan, return precautions discussed including but not limited to worsening pain or symptoms, fevers, or signs of infection, chest pain, respiratory distress, inability to tolerate oral intake, dehydration, syncope, or neurologic changes. The patient is to follow up with PMD and Neurology and ENT as recommended within 1 week, follow up information provided and the patient will call for an appointment. The patient is to take medications as instructed for duration of time and continue with supportive care, avoid triggers and precipitants. Patient is safe for outpatient follow-up. *DC/Admit/Observation/Transfer Diagnosis at time of Disposition: Headache Qualifiers: Headache type: unspecified Headache chronicity pattern: unspecified pattern Intractability: not intractable Qualified Code(s): R51 - Headache - Discharge Dispostion Disposition: HOME Condition at time of disposition: Stable Decision to Admit order: No - Referrals Referrals: Gabino Holm MD [Primary Care Provider] - Maximilian Gottlieb MD [Staff Physician] - Lane Nguyen MD [Staff Physician] - - Patient Instructions Printed Discharge Instructions: DI for Headache Additional Instructions: 1) Please follow-up with your primary care doctor, our neurologist, and our ENT specialist in the next 2-3 days. Please call tomorrow to schedule a follow up appointment. If you cannot follow up with your doctor within 1 week please return to the Emergency Department for any urgent issues. 2)Your laboratory results were normal here in the ER. 3) If you have any worsening of symptoms or any other concerns please return to the ER immediately. Return if worsening symptoms including fevers, headache, vomiting, visual or hearing disturbances, abdominal pain, chest pain, shortness of breath, syncope, dehydration, inability to take things by mouth/vomiting, altered mental status, or worsening concerning symptoms. 4) Please continue taking your home medications as directed. - Post Discharge Activity
--- NOTE | 2018-09-14 12:30 | PDOC ---
Documentation entered by Carmel Calvo SCRIBE, acting as scribe for Jennifer Shepherd MD. Jennifer Shepherd MD: This documentation has been prepared by the breeeUmesh Amanda, SCRIBE, under my direction and personally reviewed by me in its entirety. I confirm that the documentation accurately reflects all work, treatment, procedures, and medical decision making performed by me. Attending Attestation - Resident Resident Name: Sulaiman Johnson - ED Attending Attestation I have performed the following: I have examined & evaluated the patient, The case was reviewed & discussed with the resident, I agree w/resident's findings & plan, Exceptions are as noted - HPI HPI: 09/14/18 13:04 The patient is a 42-year-old female with a significant past medical history significant for Buerger's disease, HTN, endometriosis, HLD, asthma, anemia, anxiety and depression who presents to the emergency department with 4 days of pressure like headache with associated phonophobia and right ear pain. She states she took ibuprofen which improved her headache temporarily, however, presents with continued headache. The payient denies fever, chills, nausea, vomiting, diarrhea, constipation, dysuria, frequency or urgency to urinate, chest pain or shortness of breath. Allergies: Iodinated Contrast, Penicillins, pine trees. Social history: No past or present use of tobacco, alcohol or recreational drug use. Surgical history: 3x abdominal surgery for endometriosis, , 6x ovarian cyst removed. PCP: Sterling Lerma MD - Physicial Exam PE: GENERAL: Awake, alert, and fully oriented, in no acute distress HEAD: No signs of trauma EYES: PERRLA, EOMI, sclera anicteric, conjunctiva clear ENT: Auricles normal inspection, hearing grossly normal, nares patent, oropharynx clear without exudates. Moist mucosa. TMs normal in appeance B/L, no pain on movement of hte pinna NECK: Normal ROM, supple, no lymphadenopathy, JVD, or masses LUNGS: Breath sounds equal, clear to auscultation bilaterally. No wheezes, and no crackles HEART: Regular rate and rhythm, normal S1 and S2, no murmurs, rubs or gallops ABDOMEN: Soft, nontender, normoactive bowel sounds. No guarding, no rebound. No masses EXTREMITIES: Normal range of motion, no edema. No clubbing or cyanosis. No cords, erythema, or tenderness NEUROLOGICAL: Cranial nerves II through XII grossly intact. Normal speech, normal gait. Motor and sensation intact SKIN: Warm, Dry, normal turgor, no rashes or lesions noted. - Medical Decision Making Pt with headache that is suspicious for migraines (she has had prior similar headaches, this is associated with phonophobia). Will treat symptomatically. F/ u outpatient with neuro and ENT.
[2018-09-14] MEDS ORDERED: SODIUM CHLORIDE 1,000 ML IV STA (12:53)
[2018-09-14] MEDS ORDERED: ACETAMINOPHEN 1000 MG/100 ML VIAL (NON FORMULARY) IVPB ONE (12:58)
[2018-09-14] MEDS ORDERED: ACETAMINOPHEN INJECTION 100 ML IVPB ONE (13:38)
[2018-09-14] MEDS ORDERED: METOCLOPRAMIDE HCL INJECTION 10 MG/2 ML VIAL IVPB ONE (13:45)
[2018-09-14 14:18] LABS: BASO % 0.4 % (0-2.0); EOS % 3.5 % (0-4.5); HEMATOCRIT 33.9 % (32.4-45.2); HEMOGLOBIN 11.3 GM/dL (10.7-15.3); LYMPH % 21.7 % (8-40); MCH 28.8 pg (25.7-33.7); MCHC 33.4 g/dl (32.0-36.0); MEAN PLT VOLUME 9.9 fl (7.5-11.1); MONO % 9.4 % (3.8-10.2); PLATELET COUNT 277 K/MM3 (134-434); RBC 3.95 M/mm3 (3.60-5.2); RDW 13.8 % (11.6-15.6); WHITE BLOOD COUNT 6.5 K/mm3 (4.0-10.0)
[2018-09-14 14:56] LABS: ALBUMIN 2.8 g/dl (3.4-5.0); ALK PHOS 64 U/L (45-117); ANION GAP 5 MMOL/L (8-16); BILIRUBIN,TOTAL 0.2 mg/dL (0.2-1); BLOOD UREA NITROGEN 16 mg/dL (7-18); CALCIUM 9.4 mg/dL (8.5-10.1); CHLORIDE 108 mmol/L (98-107); CO2 26 mmol/L (21-32); CREATININE 1.1 mg/dL (0.55-1.3); GLUCOSE,RANDOM 98 mg/dL (74-106); POTASSIUM 4.4 mmol/L (3.5-5.1); SGOT/AST 21 U/L (15-37); SGPT/ALT 19 U/L (13-61); SODIUM 139 mmol/L (136-145); TOT PROT 6.8 g/dl (6.4-8.2)
== END 2018-09-14 15:26 | disposition home or self-care (01) ==
LOC: JER 11:06
PROC: 3E033NZ Introduction of Analgesics, Hypnotics, Sedatives into Peripheral Vein, Percutaneous Approach (ICD-10-PCS; principal; 2018-09-14)
PROC: 3E0337Z Introduction of Electrolytic and Water Balance Substance into Peripheral Vein, Percutaneous Approach (ICD-10-PCS; 2018-09-14)
DX: R51 Headache (principal); I10 Essential (primary) hypertension; E78.5 Hyperlipidemia, unspecified; J45.909 Unspecified asthma, uncomplicated
CPT/HCPCS: 36415; 80053; 84703; 85025; 96361; 96374; 99281-25; J0131; J7030

== ENCOUNTER 2018-10-29 14:58 | Emergency (ER) | payer OTHER | END 2018-10-29 21:30 | disposition home or self-care (01) | LOC: JER 14:58 ==